=== PATIENT | male | born 1980 ===

== ENCOUNTER 2016-11-23 08:32 | Emergency (ER) | payer SELFPAY ==
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
[2016-11-23 10:54] VITALS: BP 149/104
== END 2016-11-23 10:58 | disposition home or self-care (01) ==
LOC: UCEAST 08:32
DX: S60.212A Contusion of left wrist, initial encounter (principal); S60.512A Abrasion of left hand, initial encounter; S61.432A Puncture wound without foreign body of left hand, initial encounter; X58.XXXA Exposure to other specified factors, initial encounter; Y93.9 Activity, unspecified; Y92.89 Other specified places as the place of occurrence of the external cause; Y99.0 Civilian activity done for income or pay; R03.0 Elevated blood-pressure reading, without diagnosis of hypertension; F17.210 Nicotine dependence, cigarettes, uncomplicated
CPT/HCPCS: 99202; G0463